=== PATIENT | female | born 2000 | race Two or more races ===

== ENCOUNTER 2020-08-08 10:04 | Emergency (ER) | payer OTHER ==
[~2020-08-08] VITALS: Ht 157.5 cm; Wt 56.7 kg
[2020-08-08] MEDS ORDERED: SYNTHROID88 MCG (10:08)
== END 2020-08-08 10:48 | disposition home or self-care (01) ==
LOC: ER 10:04
DX: R42 Dizziness and giddiness (principal); R55 Syncope and collapse